=== PATIENT | female | born 1930 | race Caucasian/White ===

== ENCOUNTER 2016-07-31 07:42 | Day surgery (SDC) | payer OTHER ==
[2016-07-31] MEDS ORDERED: DIAZEPAM 5 MG TAB PO ONE (07:49)
[2016-07-31] MEDS ORDERED: FAMOTIDINE 20 MG TAB PO ONE (07:49)
[2016-07-31] MEDS ORDERED: ASPIRIN EC 325 MG TAB PO ONE ×2 (07:49→08:36)
[2016-07-31] MEDS ORDERED: NS 1,000 ML IV ONE (07:49)
[2016-07-31] MEDS ORDERED: diphenhydrAMINE 25 MG CAP PO ONE (07:49)
[2016-07-31] MEDS ORDERED: MIDAZOLAM 2 MG/2 ML VIAL ONE (08:09)
[2016-07-31] MEDS ORDERED: fentaNYL 100 MCG/2 ML INJ ONE (08:09)
[2016-07-31] MEDS ORDERED: LIDOCAINE 1% 30 ML SDV ONE (08:09)
[2016-07-31] MEDS ORDERED: IOPAMIDOL (ISOVUE-300) 100 ML BTL IV ONE (08:10)
--- NOTE | 2016-07-31 08:14 | CPEKG ---
Heart Rate: 56 RR Interval: 1071 P-R Interval: 184 QRSD Interval: 78 QT Interval: 456 QTC Interval: 441 P Casm[place]: 36 QRS [place]: 80 T Wave C[place]: 62 EKG Severity - NORMAL ECG - EKG Impression: SINUS RHYTHM Electronically Signed By: Fernando Hogan 31-Jul-2016 08:17:31
[2016-07-31] MEDS ORDERED: FAMOTIDINE 20 MG TAB ONE (08:36)
[2016-07-31 08:40] LABS: % IMMATURE GRANULYOCYTES 0.2 % (0.0-1.1); ABSOLUTE IMMATURE GRANULOCYTES 0.01 10^3/uL (0.00-0.10); ADD DIFF? NO; ADD MORPH? NO; ADD SCAN? NO; ATYPICAL LYMPHOCYTE FLAG 0 (0-99); FRAGMENT RBC FLAG 0 (0-99); HEMATOCRIT 42.5 % (38.0-47.0); HEMOGLOBIN 14.6 g/dL (12.6-16.3); LEFT SHIFT FLG 0 (0-99); LIPEMIA HEMOLYSIS FLAG 90 (0-99); MEAN CELL HEMOGLOBIN 32.2 pg (27.9-34.1); MEAN CELL HEMOGLOBIN CONCENTR. 34.4 g/dL (32.4-36.7); MEAN CELL VOLUME 93.8 fL (81.5-99.8); MEAN PLATELET VOLUME 11.5 fL (8.7-11.7); PLATELET CLUMPS FLAG 0 (0-99); PLATELET COUNT 164 10^3/uL (150-400); RED BLOOD CELL COUNT 4.53 10^6/uL (4.18-5.33); RED CELL DISTRIBUTION WIDTH 12.4 % (11.5-15.2)
[2016-07-31 08:45] LABS: INR 1.25 (0.83-1.16); PROTIME(PATIENT) 15.7 SEC (12.0-15.0)
[2016-07-31 08:57] LABS: ANION GAP 11 mEq/L (8-16); CALCIUM 9.4 mg/dL (8.5-10.4); CARBON DIOXIDE 25 mEq/l (22-31); CHLORIDE 100 mEq/L (97-110); CHOLESTEROL 142 mg/dL (140-220); CHOLESTEROL/HDL RATIO 3.46 RATIO (1.00-4.44); CREATININE 0.6 mg/dL (0.6-1.0); GLOMERULAR FILTRATION RATE > 60; GLUCOSE 123 mg/dL (70-100); HIGH DENSITY LIPOPROTEIN 41 mg/dL (40-85); LDL/HDL RATIO 1.83 RATIO (1.00-3.22); LOW DENSITY LIPOPROTEIN 75 mg/dL (80-100); NON-HIGH DENSITY LIPOPROTEIN 101 mg/dL (90-129); POTASSIUM 4.1 mEq/L (3.5-5.2); SODIUM 136 mEq/L (134-144); TRIGLYCERIDE 130 mg/dL (35-135); VERY LOW DENSITY LIPOPROTEINS 26 mg/dL (8-25)
[2016-07-31] MEDS ORDERED: BIVALIRUDIN 250 MG/5 ML VIAL IV ONE (09:27)
[2016-07-31] MEDS ORDERED: NITROGLYCERIN 1,500 MCG/15 ML VIAL MISC ONE (09:27)
[2016-07-31] MEDS ORDERED: IOPAMIDOL (ISOVUE 370) 100 ML BTL IV ONE (09:30)
--- NOTE | 2016-07-31 10:25 | CPIP ---
[f rep st] INVASIVE CARDIAC PROCEDURE DATE OF PROCEDURE: 07/31/2016 PROCEDURE: 1. Coronary angiography. 2. Bypass graft angiography. 3. Left ventriculography. INDICATION: 1. Known coronary artery disease, status post bypass grafting surgery. 2. Recent onset of chest pain, concerning for crescendo angina. ACCESS: Patient was prepped and draped in sterile fashion. 1% lidocaine was used to anesthetize th e right inguinal region. A 6-Citizen [place] introducer sheath was placed selectively into the right common femoral artery via modified Seldinger technique. CORONARY ANGIOGRAPHY: A 6-Citizen [place] JL4 was advanced to the left main coronary artery and images obtai lópez. The left main coronary artery bifurcated into an LAD and circumflex coronary arteries. The le ft main coronary artery had a single discrete distal 70% stenosis present. The left anterior descen ding coronary artery was diffusely diseased. In the mid segment there is a single discrete total oc clusion. The distal vessels filled by a patent ARGUELLO to LAD graft. The circumflex coronary artery i s a moderate to large sized vessel. The circumflex coronary artery is nondominant. Circumflex kaleb nary artery is diffusely diseased. In the proximal segment, there is a single discrete 50% to 60% s tenosis present. The third OM artery was occluded. The distal vessel is being filled by a patent s aphenous vein graft to OM artery. A 6-Citizen [place] JR4 was advanced to the right coronary artery and imag es obtained. The right coronary artery is dominant. The right coronary artery was 100% occluded in the proximal segment. BYPASS GRAFT ANGIOGRAPHY: A 6-[place] JR4 was used to engage the saphenous vein graft OM 3 artery. The saphenous vein graft to OM 3 artery is widely patent with no evidence of stenosis. The 6-[place]izen [place] JR4 was then exchanged for a 6-[place] multipurpose catheter. The 6[place] multipurpose catheter wa s used to engage the saphenous vein graft to right coronary artery. The saphenous vein graft to rig ht coronary artery was widely patent. The 6[place] multipurpose catheter was then exchanged for a 6 -[place] JR4, which was used to engage the left subclavian artery. The 6-[place]izen [place] JR4 was then exchang ed for a 6-Citizen [place] ALMITA catheter. The 6-[place]izen [place] ALMITA catheter was used to engage the ARGUELLO to LAD graft. The ARGUELLO to LAD graft was patent with a distal anastomotic lesion, which appeared to be about 40% to 50% in severity. LEFT VENTRICULOGRAPHY: A 6-[place] pigtail catheter was advanced in the left ventricle and images ob tained. Left ventricle was normal size, had hyperdynamic systolic function. Estimated ejection fra ction of 70%. COMPLICATIONS: None. CONCLUSIONS: 1. Three-vessel coronary artery disease. 2. Patent bypass grafts to the LAD, OM 3, and right coronary arteries. 3. Normal left ventricular size and systolic function. 4. Plan is for medical management. /[id number]/MODL
[2016-07-31] MEDS ORDERED: VALSARTAN 160 MG TAB PO ONE (10:30)
[2016-07-31] MEDS ORDERED: CARVEDILOL 6.25 MG TAB PO ONE (10:30)
== END 2016-07-31 15:00 | disposition home or self-care (01) ==
LOC: FCATH 07:42
PROVIDERS: ATTEND Internal Medicine Cardiovascular Disease
PROC: B2111ZZ Fluoroscopy of Multiple Coronary Arteries using Low Osmolar Contrast (ICD-10-PCS; principal; 2016-07-31)
PROC: B2181ZZ Fluoroscopy of Left Internal Mammary Bypass Graft using Low Osmolar Contrast (ICD-10-PCS; principal; 2016-07-31)
PROC: B2151ZZ Fluoroscopy of Left Heart using Low Osmolar Contrast (ICD-10-PCS; principal; 2016-07-31)
PROC: B2131ZZ Fluoroscopy of Multiple Coronary Artery Bypass Grafts using Low Osmolar Contrast (ICD-10-PCS; principal; 2016-07-31)
PROC: 4A023N7 Measurement of Cardiac Sampling and Pressure, Left Heart, Percutaneous Approach (ICD-10-PCS; principal; 2016-07-31)
DX: I25.119 Atherosclerotic heart disease of native coronary artery with unspecified angina pectoris (principal); I25.82 Chronic total occlusion of coronary artery; I48.0 Paroxysmal atrial fibrillation; Z95.1 Presence of aortocoronary bypass graft; Z79.01 Long term (current) use of anticoagulants; E11.9 Type 2 diabetes mellitus without complications; I10 Essential (primary) hypertension; E03.9 Hypothyroidism, unspecified; I35.0 Nonrheumatic aortic (valve) stenosis
CPT/HCPCS: 93005; 93459; C1769; C1760; J0583; J1644; J2250; J3010; Q9967

== ENCOUNTER 2016-10-21 10:50 | Emergency (ER) | payer OTHER ==
[2016-10-21] MEDS ORDERED: PHENYLEPHRINE 0.5% NASAL 15 ML SPRAY ONE (11:11)
[2016-10-21] MEDS ORDERED: SILVER NITRATE APPLICATOR 1 APPL TP ONE ×2 (11:11→11:26)
[2016-10-21 11:37] LABS: INR 2.31 (0.83-1.16); PROTIME(PATIENT) 25.6 SEC (12.0-15.0)
--- NOTE | 2016-10-21 12:13 | EDPHY ---
H & P Stated Complaint: epistaxis this am/now resolved/on coumadin HPI/ROS: Chief complaint: Nose bleed History of present illness: This is an 85-year-old female, on Coumadin, who presents to the emergency department for nose bleed. Patient reports the onset of symptoms this morning. She is bleeding out of her left nostril. He was persistent throughout the morning but has resolved upon arrival here. She denies potential precipitating factors including no trauma no recent cold symptoms. She denies other associated signs or symptoms including other bleeding or abnormal bruising. No systemic symptoms such as lightheadedness, dizziness or fatigue. - Personal History Current Tetanus/Diphtheria Vaccine: Yes - Medical/Surgical History Hx Asthma: No Hx Chronic Respiratory Disease: Yes Hx Diabetes: Yes Hx Cardiac Disease: Yes Hx Renal Disease: No Hx Cirrhosis: No Hx Alcoholism: No Hx HIV/AIDS: No Hx Splenectomy or Spleen Trauma: No Other PMH: HTN, paroxymal A-fib, CABG (1990), Stent (2005), hypothyroid, pre- diabetic, left total shoulder (2009) - Social History Smoking Status: Never smoked - Physical Exam Exam: General Appearance: Alert and no distress. Eyes: Pupils equal and round no injection. ENT: Bleeding coming from the Kiesselbach plexus region of the left naris. Right naris unremarkable. Oropharynx unremarkable. Patient is talking in normal voice, there is no hoarseness, no drooling, no trismus, no stridor. Respiratory: Chest is non tender, lungs are clear to auscultation. Cardiac: regular rate and rhythm Musculoskeletal: Neck is supple and non tender. Extremities have full range of motion and are non tender. Skin: No rashes or lesions. Constitutional: Initial Vital Signs Temperature (C) 36.4 C 10/21/16 10:54 Heart Rate 66 10/21/16 10:54 Respiratory Rate 18 10/21/16 10:54 Blood Pressure 206/74 H 10/21/16 10:54 O2 Sat (%) 91 L 10/21/16 10:54 O2 Delivery Mode Room Air O2 (L/minute) 3 Allergies/Adverse Reactions: epinephrine Allergy (Intermediate, Verified 10/21/16 10:51) Other-Enter Comments Home Medications: Medication Instructions Recorded Acetaminophen [Tylenol Tablet] 500 mg PO Q6 01/15/14 Aspirin [Aspirin 325 mg (OTC)] 325 mg PO DAILY 01/15/14 Atorvastatin Calcium [Lipitor 40 40 mg PO DAILY 01/15/14 mg (RX)] Carvedilol [Coreg (RX)] 12.5 mg PO BIDMEAL 01/15/14 Levothyroxine [Synthroid 50 mcg 50 mcg PO MOTUWETHFR@01/15/14 (RX)] Levothyroxine [Synthroid 50 mcg 100 mcg PO SUSA@01/15/14 (RX)] Nitroglycerin [Nitrostat 0.4 mg 0.4 mg SL PRN PRN 01/15/14 (RX)] Valsartan [Diovan] 160 mg PO BID 01/15/14 Warfarin Sodium [Coumadin 5MG (RX)] 2.5 mg PO DAILY16 01/15/14 Warfarin Sodium [Coumadin 5MG (RX)] 5 mg PO WESA 01/15/14 Ferrous Sulfate 324 mg PO DAILY 07/31/16 Tylenol 500 mg PO PRN PRN 07/31/16 Medical Decision Making Procedures: Procedure: Epistaxis control. After verbal consent was obtained. The anterior epistaxis was identified. The patient was treated with Justo-Synephrine, silver nitrate cautery and Merocel packing. Following the procedure the patient was re-examined and the bleeding was well controlled. The patient tolerated the procedure well. The procedure was performed by myself. ED Course/Re-evaluation: Patient seen under the supervision of my secondary supervising physician Dr. Mauri Harvey. Patient presents to the emergency department for a nose bleed. She is on Coumadin. She is afebrile and vital signs are stable. Anterior epistaxis is identified and controlled. INR is checked and within normal limits. Patient is observed without any bleeding in the emergency room. Vital signs remained stable. Patient will be discharged home. She is referred to Ears Nose and Throat doctor for recheck. Return precautions are given. Patient voiced understanding and agreement with plan. Differential Diagnosis: Included but not limited to anterior epistaxis, posterior epistaxis, coagulopathy - Data Points Laboratory Results: 10/21/16 11:24 PT 25.6 SEC H SEC (12.0-15.0) INR 2.31 H (0.83-1.16) Departure - Departure Disposition: Home, Routine, Self-Care Clinical Impression: Epistaxis Condition: Good Instructions: Nosebleed (ED) Additional Instructions: Follow-up with an Ears Nose and Throat doctor for continued evaluation and care Packing to be removed in 2 days If symptoms worsen or new symptoms develop return to the emergency room for recheck Referrals: Nadeem Hooper MD [Primary Care Provider] - As per Instructions Jose Raul Pinto MD [Medical Doctor] - As per Instructions
[2016-10-21 12:43] VITALS: BP 141/101; PULSE 70; RESP 14; TEMP 98.4; O2SAT 94
== END 2016-10-21 12:42 | disposition home or self-care (01) ==
PROC: 2Y41X5Z Packing of Nasal Region using Packing Material (ICD-10-PCS; principal; 2016-10-21)
DX: R04.0 Epistaxis (principal); I10 Essential (primary) hypertension; Z79.01 Long term (current) use of anticoagulants; Z79.82 Long term (current) use of aspirin; Z95.1 Presence of aortocoronary bypass graft; Z95.5 Presence of coronary angioplasty implant and graft

== ENCOUNTER 2016-10-28 10:36 | Emergency (ER) | payer OTHER ==
[2016-10-28] MEDS ORDERED: OXYMETAZOLINE 30 ML NASAL SPRAY EACHNARE ONE (11:11)
--- NOTE | 2016-10-28 11:11 | EDPHY ---
H & P Time Seen by Provider: 10/28/16 11:03 HPI/ROS: CHIEF COMPLAINT: Nose bleed HISTORY OF PRESENT ILLNESS: Patient was here on October 21 and had cautery and packing and was subsequently seen by Dr. Pinto in the office. She had recurrent nosebleed today mostly at the left nostril. Symptoms moderate. Arrives by EMS. Not dizzy or lightheaded and no syncope. REVIEW OF SYSTEMS: Eye: no change in vision ENT: HPI Cardiac: no chest pain or syncope Pulmonary: no cough or SOB Abdomen: no vomiting, diarrhea, abdominal pain Musculoskeletal: no back pain Skin: no rash Neuro: no headache Constitutional: no fever : no urinary symptoms A comprehensive 10 point review of systems is otherwise negative aside from elements mentioned in the history of present illness. PAST MEDICAL HISTORY: Includes AFib on warfarin, hypertension, coronary artery bypass grafting, thyroid, left total shoulder arthroplasty. Social history: Nonsmoker General Appearance: Alert and conversant, cooperative. Eyes: No scleral icterus. ENT, Mouth: Left nares has packing with active oozing. Respiratory: Normal respiratory effort, breath sounds equal, lungs are clear to auscultation. Cardiovascular: Distant heart sounds. No murmur. Gastrointestinal: Abdomen is soft and non tender. Neurological: Alert and oriented x3. Normally conversant. Face symmetric, normal movement and sensation in all extremities. Skin: Warm and dry, no rashes. Musculoskeletal: No peripheral edema and no joint swelling. Psychiatric: Not agitated. Emergency Department course/MDM: Patient had her nose packed with 1% xylocaine and Afrin. With direct vision I cauterized 1 bleeding area on the septum on the right, and a Merocel nasal pack was placed in the left nostril with Surgicel. 1307: Patient was able to blow her nose and got a large clot out, I was able to suction additional out of the right nostril. No further bleeding at the left nares. Her request is follow-up with [facility] ENT. Smoking Status: Never smoked Constitutional: Initial Vital Signs Temperature (C) 36.7 C 10/28/16 10:39 Heart Rate 78 10/28/16 10:39 Respiratory Rate 20 10/28/16 10:39 Blood Pressure 160/81 H 10/28/16 10:39 O2 Sat (%) 91 L 10/28/16 10:39 O2 Delivery Mode Room Air O2 (L/minute) 2.5 Allergies/Adverse Reactions: epinephrine Allergy (Intermediate, Verified 10/28/16 10:37) Other-Enter Comments Home Medications: Medication Instructions Recorded Acetaminophen [Tylenol Tablet] 500 mg PO Q6 01/15/14 Aspirin [Aspirin 325 mg (OTC)] 325 mg PO DAILY 01/15/14 Atorvastatin Calcium [Lipitor 40 40 mg PO DAILY 01/15/14 mg (RX)] Carvedilol [Coreg (RX)] 12.5 mg PO BIDMEAL 01/15/14 Levothyroxine [Synthroid 50 mcg 50 mcg PO MOTUWETHFR@01/15/14 (RX)] Levothyroxine [Synthroid 50 mcg 100 mcg PO SUSA@01/15/14 (RX)] Nitroglycerin [Nitrostat 0.4 mg 0.4 mg SL PRN PRN 01/15/14 (RX)] Valsartan [Diovan] 160 mg PO BID 01/15/14 Warfarin Sodium [Coumadin 5MG (RX)] 2.5 mg PO DAILY16 01/15/14 Warfarin Sodium [Coumadin 5MG (RX)] 5 mg PO WESA 01/15/14 Ferrous Sulfate 324 mg PO DAILY 07/31/16 Tylenol 500 mg PO PRN PRN 07/31/16 MDM/Departure - MDM Medications Given: Discontinued Medications Oxymetazoline HCl (Afrin Nasal Amery) 2 sprays EACHNARE EDNOW ONE Stop: 10/28/16 11:12 Last Admin: 10/28/16 11:22 Dose: 2 spray - Depart Disposition: Home, Routine, Self-Care Clinical Impression: Acute anterior epistaxis Condition: Good Instructions: Nosebleed (ED) Additional Instructions: Please follow-up with ear nose and throat physician on Sunday as discussed. Referrals: Nadeem Hooper MD [Primary Care Provider] - As per Instructions Wyatt Mcwilliams MD [Medical Doctor] - As per Instructions Lolly Schmidt MD [Medical Doctor] - As per Instructions
[2016-10-28 13:12] VITALS: TEMP 97.2; O2SAT 98
[2016-10-28 13:46] VITALS: BP 134/80; PULSE 63; RESP 15
== END 2016-10-28 13:48 | disposition home or self-care (01) ==
PROC: 2Y41X5Z Packing of Nasal Region using Packing Material (ICD-10-PCS; principal; 2016-10-28)
DX: R04.0 Epistaxis (principal); I10 Essential (primary) hypertension; Z79.82 Long term (current) use of aspirin; Z79.01 Long term (current) use of anticoagulants; Z95.1 Presence of aortocoronary bypass graft

== ENCOUNTER 2018-01-09 21:10 | Inpatient (IN) | payer OTHER ==
[2018-01-09] MEDS ORDERED: IPRATROPIUM/ALBUTEROL 3 ML DEYVIAL IH ONE (22:09)
[2018-01-09] MEDS ORDERED: NS 500 ML IV ONE (22:09)
--- NOTE | 2018-01-09 22:13 | EDPHY ---
H & P Stated Complaint: Chest congestion, cough, sore throat Time Seen by Provider: 01/09/18 21:57 HPI/ROS: HPI The patient presents with cough, chest congestion, sore throat, left-sided chest pain. She initially developed a sore throat about 5 days ago. About 3 days later she developed a cough which was occasionally productive of clear mucus associated with congestion in her chest. Then yesterday she developed left-sided pleuritic chest pain which was worse with coughing and now worse with deep breaths. She uses an oxygen concentrator at home for the last 4 years for presumed interstitial pulmonary fibrosis. She uses 2.5 L. She has not used any breathing treatments at home. She denies any shortness of breath, malaise, myalgias. Her roommate was sick a few weeks ago with chest congestion.. REVIEW OF SYSTEMS Constitutional: No fever, no chills. Eyes: No discharge. ENT: Positive for sore throat. Cardiovascular: No chest pain, no palpitations. Respiratory: See HPI Gastrointestinal: No abdominal pain, no vomiting. Genitourinary: No hematuria. Musculoskeletal: No back pain. Skin: No rashes. Neurological: No headache. PMHx: CAD status post CABG in 1990, cardiac stent placed in 2005, paroxysmal atrial fibrillation managed on Coumadin, interstitial lung disease on 2.5 L of oxygen at home Soc Hx: Housed with roommate, nonsmoker PHYSICAL General Appearance: Alert, no distress Eyes: Pupils equal and round no pallor or injection ENT, Mouth: Mucous membranes moist Respiratory: T breathing comfortably, crackles at lung bases, no retractions Cardiovascular: Regular rate and rhythm Gastrointestinal: Abdomen is soft and non-tender, no masses, bowel sounds normal Neurological: A&O, moves all extremities Skin: Warm and dry, no rashes Musculoskeletal: Neck is supple non tender Extremities: symmetrical, full range of motion Psychiatric: Patient is oriented X 3, there is no agitation Source: Patient Exam Limitations: No limitations - Personal History Current Tetanus Diphtheria and Acellular Pertussis (TDAP): Yes - Medical/Surgical History Hx Asthma: No Hx Chronic Respiratory Disease: Yes Hx Diabetes: Yes Hx Cardiac Disease: Yes Hx Renal Disease: No Hx Cirrhosis: No Hx Alcoholism: No Hx HIV/AIDS: No Hx Splenectomy or Spleen Trauma: No Other PMH: HTN, paroxymal A-fib, CABG (1990), Stent (2005), hypothyroid, pre- diabetic, left total shoulder (2009) - Social History Smoking Status: Never smoked Constitutional: Initial Vital Signs Temperature (C) 36.9 C 01/09/18 21:14 Heart Rate 72 01/09/18 21:14 Respiratory Rate 20 01/09/18 21:14 Blood Pressure 133/57 H 01/09/18 21:14 O2 Sat (%) 86 L 01/09/18 21:14 O2 Delivery Mode Nasal Cannula O2 (L/minute) 4 Allergies/Adverse Reactions: epinephrine Allergy (Intermediate, Verified 01/09/18 21:11) Other-Enter Comments Home Medications: Medication Instructions Recorded Acetaminophen [Tylenol Tablet] 500 mg PO Q6 01/15/14 Aspirin [Aspirin 325 mg (OTC)] 325 mg PO DAILY 01/15/14 Atorvastatin Calcium [Lipitor 40 40 mg PO DAILY 01/15/14 mg (RX)] Carvedilol [Coreg (RX)] 12.5 mg PO BIDMEAL 01/15/14 Levothyroxine [Synthroid 50 mcg 50 mcg PO MOTUWETHFR@01/15/14 (RX)] Levothyroxine [Synthroid 50 mcg 100 mcg PO SUSA@01/15/14 (RX)] Nitroglycerin [Nitrostat 0.4 mg 0.4 mg SL PRN PRN 01/15/14 (RX)] Valsartan [Diovan] 160 mg PO BID 01/15/14 Warfarin Sodium [Coumadin 5MG (RX)] 2.5 mg PO DAILY16 01/15/14 Warfarin Sodium [Coumadin 5MG (RX)] 5 mg PO WESA 01/15/14 Ferrous Sulfate 324 mg PO DAILY 07/31/16 Tylenol 500 mg PO PRN PRN 07/31/16 Medical Decision Making - Diagnostics Imaging Results: Imaging Impressions Chest X-Ray 01/09/18 22:09 Impression: Increasing infiltrates within both lungs, pulmonary edema versus multifocal pneumonia.. 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 Imaging: Discussed imaging studies w/ call person Radiologist Differential Diagnosis: This is an 87-year-old female with past medical history of CAD status post CABG , paroxysmal atrial fibrillation managed on Coumadin, interstitial lung disease using 2.5 L of oxygen at home who presents with sore throat, cough, chest congestion, left-sided chest pain for the last several days. On exam, she is hypoxic on her usual home oxygen, with 5 L of oxygen we are able to keep her saturations in the low 90s. She has crackles in her lung exam , however I am not sure if this is much of a change from her baseline. Differential diagnosis includes pneumonia, viral URI, pulmonary embolism would be unusual given that she is on Coumadin currently, new onset CHF is also a consideration. Plan for trial of DuoNeb. Patient did improve after receiving a DuoNeb. Chest x-ray was abnormal with signs of infiltrate. Labs were checked and did reveal leukocytosis. D-dimer was elevated. Patient underwent CT scan of her chest with contrast demonstrating no PE though multifocal infiltrate. She was treated with ceftriaxone and azithromycin for community-acquired pneumonia. Blood cultures were drawn. She did have a slightly elevated troponin which I attribute to cardiac strain versus true ACS. She will be admitted to the hospitalist service , I have consulted with Dr. Mg who will admit the patient. - Data Points Laboratory Results: Laboratory Results 01/09/18 21:30 01/09/18 21:30 01/10/18 01/09/18 01/09/18 00:30 23:10 21:30 WBC RBC Hgb Hct MCV MCH MCHC RDW Plt Count MPV Neut % (Auto) Lymph % (Auto) [place] % (Auto) Eos % (Auto) Baso % (Auto) Nucleat RBC Rel Count Absolute Neuts (auto) Absolute Lymphs (auto) Absolute Monos (auto) Absolute Eos (auto) Absolute Basos (auto) Absolute Nucleated RBC Immature Gran % Seg Neutrophils % Band Neutrophils % Lymphocytes % Monocytes % Eosinophils % Basophils % Metamyelocytes % Myelocytes % Promyelocytes % Blast Cells % Megakaryocytes % Immature Gran # Absolute Seg Neuts Absolute Band Neuts Absolute Lymphocytes Absolute Monocytes Absolute Eosinophils Absolute Basophils Absolute Metamyelocyte Absolute Myelocytes Absolute Promyelocytes Absolute Plasma Cells Nucleated RBCs Differential Comment RBC/WBC/PLT Morphology Hypersegmented Neuts Atypical Lymphocytes Absolute Blast Cells Plasma Cells % Smudge Cells Toxic Granulation Toxic Vacuolation Dohle Bodies Emiliano Rods Platelet Estimate Clumped Platelets Large Platelets Giant Platelets Bizarre Platelets Polychromasia Hypochromasia Basophilic Stippling Microcytic Cells Spherocytes Pappenheimer Bodies Sickle Cells Target Cells Tear Drop Cells Oval Macrocytes Stomatocytes Savage-Stephens Bodies Echinocytes Elliptocytes Acanthocytes (Spur) Rouleaux Keratocytes Schistocytes PT INR D-Dimer Sodium 131 mEq/L L mEq/L (135-145) Potassium 4.1 mEq/L mEq/L (3.3-5.0) Chloride 94 mEq/L L mEq/L (97-110) Carbon Dioxide 27 mEq/l mEq/l (22-31) Anion Gap 10 mEq/L mEq/L (8-16) BUN 21 mg/dL mg/dL (7-23) Creatinine 0.6 mg/dL mg/dL (0.6-1.0) Estimated GFR > 60 Glucose 171 mg/dL H mg/dL (70-100) Calcium 8.5 mg/dL mg/dL (8.5-10.4) POC Troponin I 0.09 ng/mL H ng/mL (0.00-0.08) NT-Pro-B Natriuret Pep 2200 pg/mL H pg/mL (0-450) Procalcitonin 0.29 ng/mL H ng/mL (0.02-0.10) Specimen Hemolysis 116 Cold Agglutinins 01/09/18 01/09/18 21:30 21:30 WBC 16.53 10^3/uL H 10^3/uL (3.80-9.50) RBC 4.15 10^6/uL L 10^6/uL (4.18-5.33) Hgb 12.8 g/dL g/dL (12.6-16.3) Hct 37.8 % L % (38.0-47.0) MCV 91.1 fL fL (81.5-99.8) MCH 30.8 pg pg (27.9-34.1) MCHC 33.9 g/dL g/dL (32.4-36.7) RDW 13.2 % % (11.5-15.2) Plt Count 206 10^3/uL 10^3/uL (150-400) MPV 11.4 fL fL (8.7-11.7) Neut % (Auto) 82.6 % H % (39.3-74.2) Lymph % (Auto) 4.7 % L % (15.0-45.0) [place] % (Auto) 11.8 % % (4.5-13.0) Eos % (Auto) 0.0 % L % (0.6-7.6) Baso % (Auto) 0.2 % L % (0.3-1.7) Nucleat RBC Rel Count 0.0 % % (0.0-0.2) Absolute Neuts (auto) 13.66 10^3/uL H 10^3/uL (1.70-6.50) Absolute Lymphs (auto) 0.77 10^3/uL L 10^3/uL (1.00-3.00) Absolute Monos (auto) 1.95 10^3/uL H 10^3/uL (0.30-0.80) Absolute Eos (auto) 0.00 10^3/uL L 10^3/uL (0.03-0.40) Absolute Basos (auto) 0.04 10^3/uL 10^3/uL (0.02-0.10) Absolute Nucleated RBC 0.00 10^3/uL 10^3/uL (0-0.01) Immature Gran % 0.7 % % (0.0-1.1) Seg Neutrophils % Cancelled Band Neutrophils % Cancelled Lymphocytes % Cancelled Monocytes % Cancelled Eosinophils % Cancelled Basophils % Cancelled Metamyelocytes % Cancelled Myelocytes % Cancelled Promyelocytes % Cancelled Blast Cells % Cancelled Megakaryocytes % Cancelled Immature Gran # 0.11 10^3/uL H 10^3/uL (0.00-0.10) Absolute Seg Neuts Cancelled Absolute Band Neuts Cancelled Absolute Lymphocytes Cancelled Absolute Monocytes Cancelled Absolute Eosinophils Cancelled Absolute Basophils Cancelled Absolute Metamyelocyte Cancelled Absolute Myelocytes Cancelled Absolute Promyelocytes Cancelled Absolute Plasma Cells Cancelled Nucleated RBCs Cancelled Differential Comment Cancelled RBC/WBC/PLT Morphology Cancelled Hypersegmented Neuts Cancelled Atypical Lymphocytes Cancelled Absolute Blast Cells Cancelled Plasma Cells % Cancelled Smudge Cells Cancelled Toxic Granulation Cancelled Toxic Vacuolation Cancelled Dohle Bodies Cancelled Emiliano Rods Cancelled Platelet Estimate Cancelled Clumped Platelets Cancelled Large Platelets Cancelled Giant Platelets Cancelled Bizarre Platelets Cancelled Polychromasia Cancelled Hypochromasia Cancelled Basophilic Stippling Cancelled Microcytic Cells Cancelled Spherocytes Cancelled Pappenheimer Bodies Cancelled Sickle Cells Cancelled Target Cells Cancelled Tear Drop Cells Cancelled Oval Macrocytes Cancelled Stomatocytes Cancelled Savage-Stephens Bodies Cancelled Echinocytes Cancelled Elliptocytes Cancelled Acanthocytes (Spur) Cancelled Rouleaux Cancelled Keratocytes Cancelled Schistocytes Cancelled PT 35.4 SEC H SEC (12.0-15.0) INR 3.57 H (0.83-1.16) D-Dimer 4.17 ug/mLFEU H ug/mLFEU (0.00-0.50) Sodium Potassium Chloride Carbon Dioxide Anion Gap BUN Creatinine Estimated GFR Glucose Calcium POC Troponin I NT-Pro-B Natriuret Pep Procalcitonin Specimen Hemolysis Cold Agglutinins Cancelled Microbiology Results: MICROBIOLOGY 01/09/18 23:30 Blood Blood Culture - Preliminary Medications Given: Discontinued Medications Acetaminophen (Tylenol) 650 mg PO EDNOW ONE Stop: 01/10/18 00:09 Last Admin: 01/10/18 00:08 Dose: 650 mg Albuterol/Ipratropium (Duoneb) 3 ml IH EDNOW ONE Stop: 01/09/18 22:10 Last Admin: 01/09/18 22:36 Dose: 3 ml Sodium Chloride (Ns) 500 mls @ 1,000 mls/hr IV EDNOW ONE PRN Reason: Protocol Stop: 01/09/18 22:38 Last Admin: 01/09/18 22:36 Dose: 500 mls Azithromycin 500 mg/ Sodium (Chloride) 255 mls @ 255 mls/hr IV EDNOW ONE PRN Reason: Protocol Stop: 01/09/18 23:40 Last Admin: 01/09/18 23:59 Dose: 255 mls Ceftriaxone Sodium/Dextrose (Rocephin 1 Gm (Premix)) 50 mls @ 100 mls/hr IV EDNOW ONE PRN Reason: Protocol Stop: 01/09/18 23:10 Last Admin: 01/09/18 23:40 Dose: 50 mls Point of Care Test Results: Chemistry 01/09/18 23:10 POC Troponin I 0.09 ng/mL H ng/mL (0.00-0.08) Departure - Departure Disposition: Acute Care Hospital Not [facility] Clinical Impression: Multifocal pneumonia, Interstitial lung disease, Hypoxia, Elevated troponin Condition: Fair
[2018-01-09 22:21] LABS: PLATELET COUNT 206 10^3/uL (150-400)
[2018-01-09 22:25] LABS: INR 3.57 (0.83-1.16); PROTIME(PATIENT) 35.4 SEC (12.0-15.0)
[2018-01-09] MEDS ORDERED: AZITHROMYCIN IV 500 MG in NS 250 ML IV ONE (22:41)
[2018-01-09] MEDS ORDERED: IOPAMIDOL (ISOVUE 370) 100 ML BTL IV ONE (22:45)
[2018-01-10] MEDS ORDERED: ACETAMINOPHEN 325 MG TAB ONE (00:07)
[2018-01-10] MEDS ORDERED: ACETAMINOPHEN 325 MG TAB PO ONE (00:08)
[2018-01-10] MEDS ORDERED: ONDANSETRON DISINTEGRATING 4 MG TAB PO PRN (00:34)
[2018-01-10] MEDS ORDERED: ONDANSETRON 4 MG/2 ML VIAL IVP PRN (00:34)
[2018-01-10] MEDS ORDERED: D50W 25 GM/50 ML VIAL IVP PRN (00:42)
--- NOTE | 2018-01-10 01:04 | PDGENHP ---
History and Physical - Chief Complaint Pleuritic pain - History of Present Illness 87 yo F w/ hx of CAD, ILD, DM, AF, CHRF, and HTN presents with SOB. Patient tells me she first noted a sore throat and cough starting about 5 days ago. Her cough progressed and she then became short of breath. Over the last 2 days she was coughing and hurt her L chest wall. She comes in today with cough, SOB, and L pleuritic chest pain. She usually wears 2.5 L/min O2 continuously for her history of ILD. Her cough is productive of only white sputum. Currently she is more comfortable after a nebulizer treatment. She is requiring 5 L/min O2 but breathing comfortable. Case discussed with ED physician Dr. Taylor, records reviewed in EMR. History Information - Allergies/Home Medication List Allergies/Adverse Reactions: epinephrine Allergy (Intermediate, Verified 01/09/18 21:11) Other-Enter Comments Home Medications: Acetaminophen [Tylenol Tablet] 500 mg PO Q6 01/15/14 [Last Taken 01/25/14 21:30] Aspirin [Aspirin 325 mg (OTC)] 325 mg PO DAILY 01/15/14 [Last Taken 07/31/16 06: 00] Atorvastatin Calcium [Lipitor 40 mg (RX)] 40 mg PO DAILY 01/15/14 [Last Taken 06:00] Carvedilol [Coreg (RX)] 12.5 mg PO BIDMEAL 01/15/14 [Last Taken 07/30/16 20:00] Levothyroxine [Synthroid 50 mcg (RX)] 50 mcg PO MOTUWETHFR@01/15/14 [Last Taken 07/31/16 06:00] Levothyroxine [Synthroid 50 mcg (RX)] 100 mcg PO SUSA@01/15/14 [Last Taken 06:00] Nitroglycerin [Nitrostat 0.4 mg (RX)] 0.4 mg SL PRN PRN 01/15/14 [Last Taken Unknown] Valsartan [Diovan] 160 mg PO BID 01/15/14 [Last Taken 07/30/16 20:00] Warfarin Sodium [Coumadin 5MG (RX)] 2.5 mg PO DAILY16 01/15/14 [Last Taken 07/27 17:00] Warfarin Sodium [Coumadin 5MG (RX)] 5 mg PO WESA 01/15/14 [Last Taken 07/26/16 17:00] Ferrous Sulfate 324 mg PO DAILY 07/31/16 [Last Taken 07/30/16 06:00] Tylenol 500 mg PO PRN PRN 07/31/16 [Last Taken Unknown] I have personally reviewed and updated: family history, medical history - Past Medical History atrial fibrillation, coronary artery disease, diabetes type 2, hypertension Additional medical history: ILD - Surgical History Reports: coronary bypass surgery - Family History Positive for: CAD - Social History Smoking Status: Never smoked Review of Systems Review of Systems: ROS: 10pt was reviewed & negative except for what was stated in HPI & below Physical Exam Physical Exam: Temp Pulse Resp BP Pulse Ox 37.0 C 72 20 158/76 H 96 01/09/18 23:07 01/10/18 00:00 01/10/18 00:00 01/10/18 00:00 01/09/18 23:07 Constitutional: no apparent distress, not in pain Eyes: PERRL, EOMI Ears, Nose, Mouth, Throat: moist mucous membranes, no oral mucosal ulcers Cardiovascular: regular rate and rhythym, systolic murmur (@RUSB, 3/6) Respiratory: no respiratory distress, inspiratory crackles, No expiratory wheeze Gastrointestinal: normoactive bowel sounds, soft, non-tender abdomen Skin: warm, normal color Musculoskeletal: full muscle strength, no muscle tenderness Neurologic: AAOx3, CN II-XII Intact Psychiatric: interacting appropriately, not anxious Lab Data & Imaging Review 01/09/18 21:30 01/09/18 21:30 WBC 16.53 10^3/uL (3.80-9.50) H 01/09/18 21:30 RBC 4.15 10^6/uL (4.18-5.33) L 01/09/18 21:30 Hgb 12.8 g/dL (12.6-16.3) 01/09/18 21:30 Hct 37.8 % (38.0-47.0) L 01/09/18 21:30 MCV 91.1 fL (81.5-99.8) 01/09/18 21: MCH 30.8 pg (27.9-34.1) 01/09/18 21:30 MCHC 33.9 g/dL (32.4-36.7) 01/09/18 21:30 RDW 13.2 % (11.5-15.2) 01/09/18 21:30 Plt Count 206 10^3/uL (150-400) 01/09/18 21:30 MPV 11.4 fL (8.7-11.7) 01/09/18 21:30 Neut % (Auto) 82.6 % (39.3-74.2) H 01/09/18 21:30 Lymph % (Auto) 4.7 % (15.0-45.0) L 01/09/18 21:30 [place] % (Auto) 11.8 % (4.5-13.0) 01/09/18 21: Eos % (Auto) 0.0 % (0.6-7.6) L 01/09/18 21:30 Baso % (Auto) 0.2 % (0.3-1.7) L 01/09/18 21:30 Nucleat RBC Rel Count 0.0 % (0.0-0.2) 01/09/18 21:30 Absolute Neuts (auto) 13.66 10^3/uL (1.70-6.50) H 01/09/18 21:30 Absolute Lymphs (auto) 0.77 10^3/uL (1.00-3.00) L 01/09/18 21:30 Absolute Monos (auto) 1.95 10^3/uL (0.30-0.80) H 01/09/18 21:30 Absolute Eos (auto) 0.00 10^3/uL (0.03-0.40) L 01/09/18 21:30 Absolute Basos (auto) 0.04 10^3/uL (0.02-0.10) 01/09/18 21:30 Absolute Nucleated RBC 0.00 10^3/uL (0-0.01) 01/09/18 21: Immature Gran % 0.7 % (0.0-1.1) 01/09/18 21:30 Seg Neutrophils % Cancelled 01/09/18 21:30 Band Neutrophils % Cancelled 01/09/18 21:30 Lymphocytes % Cancelled 01/09/18 21:30 Monocytes % Cancelled 01/09/18 21:30 Eosinophils % Cancelled 01/09/18 21:30 Basophils % Cancelled 01/09/18 21:30 Metamyelocytes % Cancelled 01/09/18 21:30 Myelocytes % Cancelled 01/09/18 21:30 Promyelocytes % Cancelled 01/09/18 21:30 Blast Cells % Cancelled 01/09/18 21:30 Megakaryocytes % Cancelled 01/09/18 21:30 Immature Gran # 0.11 10^3/uL (0.00-0.10) H 01/09/18 21:30 Absolute Seg Neuts Cancelled 01/09/18 21:30 Absolute Band Neuts Cancelled 01/09/18 21:30 Absolute Lymphocytes Cancelled 01/09/18 21:30 Absolute Monocytes Cancelled 01/09/18 21:30 Absolute Eosinophils Cancelled 01/09/18 21:30 Absolute Basophils Cancelled 01/09/18 21:30 Absolute Metamyelocyte Cancelled 01/09/18 21:30 Absolute Myelocytes Cancelled 01/09/18 21:30 Absolute Promyelocytes Cancelled 01/09/18 21:30 Absolute Plasma Cells Cancelled 01/09/18 21:30 Nucleated RBCs Cancelled 01/09/18 21:30 Differential Comment Cancelled 01/09/18 21:30 RBC/WBC/PLT Morphology Cancelled 01/09/18 21:30 Hypersegmented Neuts Cancelled 01/09/18 21:30 Atypical Lymphocytes Cancelled 01/09/18 21:30 Absolute Blast Cells Cancelled 01/09/18 21:30 Plasma Cells % Cancelled 01/09/18 21:30 Smudge Cells Cancelled 01/09/18 21:30 Toxic Granulation Cancelled 01/09/18 21:30 Toxic Vacuolation Cancelled 01/09/18 21:30 Dohle Bodies Cancelled 01/09/18 21:30 Emiliano Rods Cancelled 01/09/18 21:30 Platelet Estimate Cancelled 01/09/18 21:30 Clumped Platelets Cancelled 01/09/18 21:30 Large Platelets Cancelled 01/09/18 21:30 Giant Platelets Cancelled 01/09/18 21:30 Bizarre Platelets Cancelled 01/09/18 21:30 Polychromasia Cancelled 01/09/18 21:30 Hypochromasia Cancelled 01/09/18 21:30 Basophilic Stippling Cancelled 01/09/18 21:30 Microcytic Cells Cancelled 01/09/18 21:30 Spherocytes Cancelled 01/09/18 21:30 Pappenheimer Bodies Cancelled 01/09/18 21:30 Sickle Cells Cancelled 01/09/18 21:30 Target Cells Cancelled 01/09/18 21:30 Tear Drop Cells Cancelled 01/09/18 21:30 Oval Macrocytes Cancelled 01/09/18 21:30 Stomatocytes Cancelled 01/09/18 21:30 Savage-Demarest Bodies Cancelled 01/09/18 21:30 Echinocytes Cancelled 01/09/18 21:30 Elliptocytes Cancelled 01/09/18 21:30 Acanthocytes (Spur) Cancelled 01/09/18 21:30 Rouleaux Cancelled 01/09/18 21:30 Keratocytes Cancelled 01/09/18 21:30 Schistocytes Cancelled 01/09/18 21:30 PT 35.4 SEC (12.0-15.0) H 01/09/18 21:30 INR 3.57 (0.83-1.16) H 01/09/18 21:30 D-Dimer 4.17 ug/mLFEU (0.00-0.50) H 01/09/18 21:30 Sodium 131 mEq/L (135-145) L 01/09/18 21:30 Potassium 4.1 mEq/L (3.3-5.0) 01/09/18 21:30 Chloride 94 mEq/L (97-110) L 01/09/18 21:30 Carbon Dioxide 27 mEq/l (22-31) 01/09/18 21:30 Anion Gap 10 mEq/L (8-16) 01/09/18 21:30 BUN 21 mg/dL (7-23) 01/09/18 21:30 Creatinine 0.6 mg/dL (0.6-1.0) 01/09/18 21:30 Estimated GFR > 60 01/09/18 21:30 Glucose 171 mg/dL (70-100) H 01/09/18 21:30 Calcium 8.5 mg/dL (8.5-10.4) 01/09/18 21:30 POC Troponin I 0.09 ng/mL (0.00-0.08) H 01/09/18 23:10 NT-Pro-B Natriuret Pep 2200 pg/mL (0-450) H 01/09/18 21:30 Specimen Hemolysis 116 01/09/18 21:30 Cold Agglutinins Cancelled 01/09/18 21:30 Imaging Review: Imaging Impressions Chest X-Ray 01/09/18 22:09 Impression: Increasing infiltrates within both lungs, pulmonary edema versus multifocal pneumonia.. CTPE Prelim: multifocal bilat infiltrates no PE mediastinal lymphadenopathy raguzzi 12:30 Assessment & Plan Assessment: 87 yo F w/ hx of CAD, ILD, DM, AF, CHRF, and HTN presents with multifocal pneumonia. Plan: 1. Multifocal pneumonia - CXR notable for multifocal infiltrates, CTA negative for PE. Unclear if viral or bacterial at this point, but reasonable to cover for bacterial initially noting pre-existing lung disease and advanced age. - CTX, Azithro for CAP coverage - Blood cultures, sputum cultures, Strep and legionella urine antigens ordered - Respiratory PCR and procalcitonin pending - Low threshold to initiate steroids, will hold off at this time noting mild hyperglycemia and minimal respiratory distress 2. 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 She uses 2.5 L/min at baseline due to history of ILD. - Wean O2 as able - Incentive spirometer ordered 3. ILD - Possibly IPF per review of records, not on specific treatment for this. Uses 2.5 L/min O2 continuously. 4. CAD - S/p CABG; most recent LHC in 2017 showed patent grafts. - Continue home medications pending reconciliation 5. AF - On warfarin as outpatient for AC. INR 3.5 on admission. - Continue warfarin - Monitor daily INR 6. DM - Not on medication, last A1c <7. - Monitor BG ACHS, D50 IV PRN for hypoglycemia - Will initiate insulin if hyperglycemic Diet - Regular Code - Full Ppx - warfarin Dispo - Admit under inpatient status
[2018-01-10 05:18] LABS: PLATELET COUNT 191 10^3/uL (150-400)
[2018-01-10 05:29] LABS: INR 3.74 (0.83-1.16); PROTIME(PATIENT) 36.7 SEC (12.0-15.0)
[2018-01-10] MEDS: ALBUTEROL 3 ML DEYVIAL IH PRN ×3 (08:34→20:55)
[2018-01-10] MEDS: AZITHROMYCIN 250 MG TAB PO SCH (08:59)
[2018-01-10] MEDS: VALSARTAN 160 MG TAB PO SCH ×2 (08:59→20:45)
[2018-01-10] MEDS: LEVOTHYROXINE 50 MCG TAB PO SCH (09:03)
--- NOTE | 2018-01-10 10:43 | HOSPPROG ---
Hospitalist Progress Note Assessment/Plan: 87 yo F w/ hx of CAD, ILD, DM, AF, CHRF, and HTN presents with multifocal pneumonia. Plan: 1. Multifocal pneumonia - CXR notable for multifocal infiltrates, CTA negative for PE. Unclear if viral or bacterial at this point, but reasonable to cover for bacterial initially noting pre-existing lung disease and advanced age. - CTX, Azithro for CAP coverage - Blood cultures, sputum cultures, Strep and legionella urine antigens ordered - Respiratory PCR and procalcitonin pending - Low threshold to initiate steroids, will hold off at this time noting mild hyperglycemia and minimal respiratory distress 2. 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 She uses 2.5 L/min at baseline due to history of ILD. - Wean O2 as able - Incentive spirometer ordered 3. ILD - Possibly IPF per review of records, not on specific treatment for this. Uses 2.5 L/min O2 continuously. 4. CAD - S/p CABG; most recent LHC in 2017 showed patent grafts. - Continue home medications pending reconciliation 5. AF - On warfarin as outpatient for AC. INR 3.5 on admission. - Continue warfarin - Monitor daily INR 6. DM - Not on medication, last A1c <7. - Monitor BG ACHS, D50 IV PRN for hypoglycemia - Will initiate insulin if hyperglycemic Diet - Regular Code - Full Ppx - warfarin Dispo - Pending clinical course Subjective: Patient reports improved chest pain with breathing Objective: Vital Signs Temp Pulse Resp BP Pulse Ox 36.8 C 68 20 141/81 H 95 01/10/18 07:55 01/10/18 08:41 01/10/18 08:41 01/10/18 07:55 01/10/18 08:41 Microbiology 01/10/18 08:40 - Final Sputum, Expectorated 01/10/18 00:50 Respiratory Panel (PCR) - Final Nasal, Sinus - Swab No Organism Detected Laboratory Results 01/10/18 05:11 01/10/18 05:11 01/09/18 01/10/18 01/11/18 05:59 05:59 05:59 Intake Total 1100 Output Total 800 100 Balance 300 -100 PT 36.7 SEC (12.0-15.0) H 01/10/18 05:11 INR 3.74 (0.83-1.16) H 01/10/18 05:11 - Physical Exam Constitutional: no apparent distress Eyes: PERRL Ears, Nose, Mouth, Throat: moist mucous membranes, hearing normal Cardiovascular: regular rate and rhythym Respiratory: no respiratory distress, reduced air movement, rhonchi Gastrointestinal: normoactive bowel sounds Genitourinary: no bladder fullness Skin: warm Musculoskeletal: no muscle tenderness Neurologic: AAOx3 Psychiatric: interacting appropriately Lymph, Heme, Immunologic: No ecchymoses, No petechiae ICD10 Worksheet Patient Problems: Problems Problem Status Onset Elevated troponin Acute Hypoxia Acute Interstitial lung disease Acute Multifocal pneumonia Acute chronic disease mgmt/transitional care Acute Shoulder arthritis Acute
[2018-01-10] MEDS: CARVEDILOL 6.25 MG TAB PO SCH ×2 (11:02→19:07)
[2018-01-10] MEDS: ASPIRIN 325 MG TAB PO SCH (11:26)
--- NOTE | 2018-01-10 13:22 | ASMTCASEMG ---
Living Arrangements What is your living Answers: Alone arrangement? Who do you live with? Type Of Residence What kind of residence do Answers: House you live in? Discharge Plan Comments Coordination Status Comments Notes: Pt is a 87 y/o female admitted for pleuritic pain. Therapies hae been ordered and awaiting recommendations. Needs are TBD at this time. CM to follow. Plan: TBD Date Signed: 01/10/2018 12:55 PM Electronically Signed By:JOVANNY Mcfadden
[2018-01-10] MEDS ORDERED: CANN-EASE 2 GM TUBE TP PRN (14:22)
[2018-01-10] MEDS: ATORVASTATIN CALCIUM 40 MG TAB PO SCH (14:42)
[2018-01-10] MEDS: FERROUS SULFATE 325 MG TAB PO SCH (14:42)
--- NOTE | 2018-01-10 15:42 | PDMN ---
Medical Necessity Medical necessity: Pt meets IP criteria per MD & MCG M-282; est los >2 mn for eval/tx of multifocal pneumonia w/acute on chronic respiratory failure; requiring further monitoring, IV abx & respiratory supportive care; comorbid advanced age, interstitial lung disease, CAD, CABG, diabetes, AFIB on AC, HTN; per H&P & order 01/10/18
[2018-01-10] MEDS: ACETAMINOPHEN 325 MG TAB PO PRN (20:44)
[2018-01-11] MEDS: ACETAMINOPHEN 325 MG TAB PO PRN ×2 (03:43→20:06)
[2018-01-11] MEDS: LEVOTHYROXINE 50 MCG TAB PO SCH (03:44)
[2018-01-11 04:33] LABS: INR 3.35 (0.83-1.16); PROTIME(PATIENT) 33.7 SEC (12.0-15.0)
[2018-01-11] MEDS: CARVEDILOL 6.25 MG TAB PO SCH ×2 (08:31→17:26)
[2018-01-11] MEDS: VALSARTAN 160 MG TAB PO SCH ×2 (08:31→20:07)
[2018-01-11] MEDS: ASPIRIN 325 MG TAB PO SCH (08:31)
[2018-01-11] MEDS: AZITHROMYCIN 250 MG TAB PO SCH (08:32)
[2018-01-11] MEDS: ALBUTEROL 3 ML DEYVIAL IH PRN ×2 (09:50→21:15)
--- NOTE | 2018-01-11 10:24 | HOSPPROG ---
Hospitalist Progress Note Assessment/Plan: 87 yo F w/ hx of CAD, ILD, DM, AF, CHRF, and HTN presents with multifocal pneumonia. Plan: 1. Multifocal pneumonia - CXR notable for multifocal infiltrates, CTA negative for PE. Unclear if viral or bacterial at this point, but reasonable to cover for bacterial initially noting pre-existing lung disease and advanced age. - CTX, Azithro for CAP coverage, will plan to transition to PO abx tomorrow - Blood cultures, sputum cultures, Strep and legionella urine antigens ordered - Respiratory PCR and procalcitonin pending - Low threshold to initiate steroids, will hold off at this time noting mild hyperglycemia and minimal respiratory distress 2. 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 She uses 2.5 L/min at baseline due to history of ILD. - Wean O2 as able - Incentive spirometer ordered 3. ILD - Possibly IPF per review of records, not on specific treatment for this. Uses 2.5 L/min O2 continuously. 4. CAD - S/p CABG; most recent LHC in 2017 showed patent grafts. - Continue home medications pending reconciliation 5. AF - On warfarin as outpatient for AC. INR 3.5 on admission. - Continue warfarin - Monitor daily INR 6. DM - Not on medication, last A1c <7. - Monitor BG ACHS, D50 IV PRN for hypoglycemia - Will initiate insulin if hyperglycemic Diet - Regular Code - Full Ppx - warfarin Dispo - Plan for discharge tomorrow if remains stable overnight to complete course of PO abx Subjective: Patient reports breathing continues to improve this morning, she does report cough though Objective: Vital Signs Temp Pulse Resp BP Pulse Ox 36.8 C 65 11 L 131/68 H 93 01/11/18 08:00 01/11/18 09:50 01/11/18 09:50 01/11/18 08:00 01/11/18 09:50 Microbiology 01/10/18 08:40 - Final Sputum, Expectorated 01/10/18 00:50 Respiratory Panel (PCR) - Final Nasal, Sinus - Swab No Organism Detected Laboratory Results 01/11/18 04:14 01/10/18 05:11 01/10/18 01/11/18 01/12/18 05:59 05:59 05:59 Intake Total 1100 1690 Output Total 800 550 Balance 300 1140 PT 33.7 SEC (12.0-15.0) H 01/11/18 04:14 INR 3.35 (0.83-1.16) H 01/11/18 04:14 - Physical Exam Constitutional: no apparent distress Eyes: PERRL Ears, Nose, Mouth, Throat: moist mucous membranes Cardiovascular: regular rate and rhythym Respiratory: no respiratory distress, reduced air movement Gastrointestinal: normoactive bowel sounds Genitourinary: No smith in urethra Skin: warm Musculoskeletal: no muscle tenderness Neurologic: AAOx3 Psychiatric: interacting appropriately ICD10 Worksheet Patient Problems: Problems Problem Status Onset Elevated troponin Acute Hypoxia Acute Interstitial lung disease Acute Multifocal pneumonia Acute chronic disease mgmt/transitional care Acute Shoulder arthritis Acute
[2018-01-11] MEDS: guaiFENesin 200 MG/10 ML UDL PO PRN ×2 (11:18→18:43)
[2018-01-11] MEDS ORDERED: AZITHROMYCIN 250 MG TAB PO ONE (12:00)
--- NOTE | 2018-01-11 12:52 | ASMTCMCOM ---
CM Note CM Note Notes: 01/11/2018 Case Management note Met w/pt to discuss d/c needs. Pt is declining need for home care. Pt lives on property with son Gagandeep [phone]. Her room mate is a private caregiver for others and at times will assist pt with needs. Discussed benefits of palliative care. Pt is considering outpatient palliative support. Case Management d/c poc: home with family support. Case Management to follow. Date Signed: 01/11/2018 12:51 PM Electronically Signed By:Elly Good RN
[2018-01-11] MEDS: ATORVASTATIN CALCIUM 40 MG TAB PO SCH (13:59)
[2018-01-11] MEDS: FERROUS SULFATE 325 MG TAB PO SCH (13:59)
[2018-01-12 05:04] LABS: INR 2.61 (0.83-1.16); PROTIME(PATIENT) 27.9 SEC (12.0-15.0)
[2018-01-12] MEDS ORDERED: LEVOTHYROXINE 50 MCG TAB PO SCH (06:00)
[2018-01-12] MEDS: ACETAMINOPHEN 325 MG TAB PO PRN (07:42)
[2018-01-12 07:54] VITALS: BP 151/69
[2018-01-12] MEDS ORDERED: ASPIRIN EC 81 MG TAB PO SCH (09:00)
[2018-01-12] MEDS ORDERED: AZITHROMYCIN 250 MG TAB PO SCH (09:00)
[2018-01-12] MEDS: CARVEDILOL 6.25 MG TAB PO SCH (09:20)
[2018-01-12] MEDS: VALSARTAN 160 MG TAB PO SCH (09:20)
--- NOTE | 2018-01-12 11:02 | ASMTLACE ---
LACE Length of stay for Answers: 2 days current admission Acuity / Level of Answers: Yes Care: Did the patient have an inpatient admission? Comorbidities - select Answers: Congestive heart failure all that apply Coronary Artery Disease Diabetes (uncontrolled or controlled) Opioid dependence / Chronic pain Other Notes: AFib; HTN; Hypothyroid # of Emergency department Answers: 1-2 visits in the last 6 months Score: 16 Date Signed: 01/12/2018 11:01 AM Electronically Signed By:Elly Good RN
--- NOTE | 2018-01-12 11:33 | ASMTDCNOTE ---
Case Management Discharge Discharge Order Complete? Answers: Yes Patient to Obtain Answers: via Family Medications Transportation Arranged Answers: Family/Friends Faxed Final Orders Answers: Yes Notes: to [facility] Family Notified Answers: Yes Notes: by patient Discharge Comments Notes: 01/12/2018 Case Management Note Pt to discharge home with son transporting. Faxed referral to [facility] for outpatient follow up. Pt to resume outpatient PT in [place]. No further case management d/c needs identified. Date Signed: 01/12/2018 11:32 AM Electronically Signed By:Elly Good RN
--- NOTE | 2018-01-12 11:33 | ASDISCHSUM ---
Discharge Information Plan Status:Outpatient Palliative Care Medically Cleared to Leave:01/12/2018 Discharge Date:01/12/2018 CM D/C Disposition:Home, Routine, Self-Care ADT D/C Disposition:Home, Routine, Self-Care Projected Discharge Date:01/12/2018 11:00 AM Transportation at D/C:Family Discharge Delay Reason: Follow-Up Date:01/12/2018 11:00 AM Discharge Slot: Final Diagnosis: Placement Information Referral Type:Palliative Care Referral ID:[id number] Provider Name:[facility] Address 1[address] Phone Number: Address 2: Fax Number: City:[place] Selection Factors: State:[place] Patient Contact Information Contact Name:EARLLILLY Relationship:Son Address: City:[facility] Phone: State/[facility] Code:[place] Email: Financial Information Financial Class:Medicare Primary Plan Desc:MEDICARE INPATIENT Primary Plan Number:[id number] Secondary Plan Desc:[employer]UL[place] JOSE PPO Secondary Plan Number:[id number] Assessment Information LACE LACE Length of stay for Answers: 2 days current admission Acuity / Level of Answers: Yes Care: Did the patient have an inpatient admission? Comorbidities - select Answers: Congestive heart failure all that apply Coronary Artery Disease Diabetes (uncontrolled or controlled) Opioid dependence / Chronic pain Other Notes: AFib; HTN; Hypothyroid # of Emergency department Answers: 1-2 visits in the last 6 months Score: 16 Date Signed: 01/12/2018 11:01 AM Electronically Signed By:Elly Good RN [facility] Initial CM Assessment Living Arrangements What is your living Answers: Alone arrangement? Who do you live with? Type Of Residence What kind of residence do Answers: House you live in? Discharge Plan Comments Coordination Status Comments Notes: Pt is a 87 y/o female admitted for pleuritic pain. Therapies hae been ordered and awaiting recommendations. Needs are TBD at this time. CM to follow. Plan: TBD Date Signed: 01/10/2018 12:55 PM Electronically Signed By:JOVANNY Mcfadden [facility] CM Progress Note CM Note CM Note Notes: 01/11/2018 Case Management note Met w/pt to discuss d/c needs. Pt is declining need for home care. Pt [place] property with son Gagandeep [phone]. Her room mate is a private caregiver for others and at times will assist pt with needs. Discussed benefits of palliative care. Pt is considering outpatient palliative support. Case Management d/c poc: home with family support. Case Management to follow. Date Signed: 01/11/2018 12:51 PM Electronically Signed By:Elly Good RN Case Management Discharge Plan Note Case Management Discharge Discharge Order Complete? Answers: Yes Patient to Obtain Answers: via Family Medications Transportation Arranged Answers: Family/Friends Faxed Final Orders Answers: Yes Notes: to [facility] Family Notified Answers: Yes Notes: by patient Discharge Comments Notes: 01/12/2018 Case Management Note Pt to discharge home with son dorothy. Faxed referral to [facility] for outpatient follow up. Pt to resume outpatient PT in [place]. No further case management d/c needs identified. Date Signed: 01/12/2018 11:32 AM Electronically Signed By:Elly Good RN Intervention Information Intervention Type:*IM-Signed Date of Service:01/11/2018 02:46 PM Patient Type:Inpatient Staff Member:Vanessa Erazo Hours: Discipline: Severity: Comment:
--- NOTE | 2018-01-12 12:25 | GDS ---
DISCHARGE DIAGNOSES: 1. Community-acquired pneumonia. 2. Acute on chronic hypoxemic respiratory failure. 3. Coronary artery disease, status post coronary artery bypass graft. 4. Interstitial lung disease. 5. Diabetes. 6. Atrial fibrillation. 7. Hypertension. HISTORY OF PRESENT ILLNESS: An 87-year-old female with coronary disease, ILD, chronic hypoxemic resp iratory failure, presenting with shortness of breath. She noted a sore throat and cough starting 5 d ays prior to admission. The cough became so bad that she became short of breath. She had some left pleuritic chest pain. Normally wears 2.5 L of oxygen, but had to increase this at home. HOSPITAL COURSE BY PROBLEM: 1. Multifactorial community-acquired pneumonia: CTA was negative for PE. Chest x-ray consistent wi th pneumonia. Negative respiratory panel. She was treated with IV antibiotics here. Will transitio n to oral for a total of 5 days. 2. Acute on chronic hypoxemic respiratory failure: On admission, was requiring 5 L, but now on 3, w hich is near her baseline. 3. ILD, stable on home oxygen. 4. Coronary artery disease, status post CABG. Most recent heart catheterization in 2017 showed jacobs nt grafts. Continue aspirin, statin, and beta willie. 5. Hypothyroidism, levothyroxine. 6. Hypertension, Diovan. 7. Atrial fibrillation. INR at goal. 8. Diabetes. Last A1c was less than 7. She is not on any medications. 9. Discharge home with outpatient PT. PHYSICAL EXAMINATION: VITAL SIGNS: Today, temperature 36.9, blood pressure 151/69, heart rate in th e 60s, respiratory rate 14, 97% on 3 L. GENERAL: She is well appearing, sitting in bed, no acute di stress. HEENT: PERRLA. Moist mucous membranes. CV: Regular rate and rhythm. LUNGS: A few rhonch i, but moving good air. ABDOMEN: Soft, nontender, nondistended. Positive bowel sounds. : No Fo rhea. MUSCULOSKELETAL: 5/5 upper/lower extremity strength. NEURO: 2 through 12 intact. PSYCH: Al ert and oriented x3. Time spent on discharge: Greater 30 minutes at bedside evaluating patient, reviewing notes and couns elimichelet on discharge plan. /[id number]/MODL
== END 2018-01-12 12:39 | disposition home or self-care (01) | DRG 193 ==
LOC: F2W 01-10 01:38
PROVIDERS: ADMIT Student in an Organized Health Care Education/Training Program; ATTEND Student in an Organized Health Care Education/Training Program
DX: J18.8 Other pneumonia, unspecified organism (principal); J96.21 Acute and chronic respiratory failure with hypoxia; E86.9 Volume depletion, unspecified; I25.10 Atherosclerotic heart disease of native coronary artery without angina pectoris; E11.65 Type 2 diabetes mellitus with hyperglycemia; I48.91 Unspecified atrial fibrillation; I10 Essential (primary) hypertension; E03.9 Hypothyroidism, unspecified; Z95.1 Presence of aortocoronary bypass graft; Z95.5 Presence of coronary angioplasty implant and graft
CPT/HCPCS: 84484-PO; 87449-90; 96365; 97116-GP; 97161-GP; 97165-GO; G8978-GP-CI; G8979-GP-CI; G8980-GP-CI; G8987-GO-CJ; G8988-GO-CI; J0456; J0696; J7613; Q9967

== ENCOUNTER → 2018-05-27 | Outpatient (CLI) | payer OTHER ==
--- NOTE | 2018-05-27 17:39 | ECHO ---
[email or web address] [address] [address] Main: [phone] Fax: Transthoracic Echocardiogram Name: RISHABH LUTZ MR#: [id number] Study Date: 05/27/2018 Study Time: 01:44 PM Date of : 1930 Age: 87 year(s) Height: 160 cm (63 in.) Weight: 72.58 kg (160 lb.) BSA: 1.76 m2 Gender: Female Examination: Echo Indication: irregular heart rate; h/o CABG Image Quality: Adequate Contrast: Requested by: Nadeem Hooper BP: / Heart Rate: Rhythm: Indication: irregular heart rate; h/o CABG Procedure Staff Scooper: Ivette Dickson [facility] Reading Physician: Bradly Calderon MD Requesting Provider: Conclusions: Normal size left ventricle. Mild concentric LV hypertrophy. Normal global systolic LV function. EF is 54 %. Grade II diastolic dysfunction. Normal RV function. The left atrium is moderately dilated. Measurements: Chambers Valvular Assessment AV/MV Valvular Assessment TV/PV Normal Normal Normal Name Value Range Name Value Range Name Value Range Ao Talisha (MM): 3.1 cm (2.2 cm-3.7 AV Vmax: 2.17 m/s (1 m/s-1.7 TR Vmax: 3.32 mm/s ( - ) cm) m/s) TR PGmax: 44 mmHg ( - ) IVSd (2D): 1.2 cm (0.6 cm-1.1 AV maxP mmHg ( - ) syst. PAP: 49 mmHg ( - ) cm) AV meanP mmHg ( - ) PV Vmax: 0.94 m/s (0.6 m/s-0.9 LVDd (2D): 4.5 cm (3.9 cm-5.3 HEIDE (VTI): 1.3 cm ( - ) m/s) cm) MV E Vmax: 1.18 m/s ( - ) PV PGmax: 4 mmHg ( - ) LVDs (2D): 2.7 cm (2.1 cm-4 MV A Vmax: 1.28 m/s ( - ) cm) MV E/A: 0.92 ( - ) LVPWd (2D): 1.2 cm ( - ) LVOTd 2.0 cm 2.0 cm mm LVEF (BP): 54 % (>=55 %) RVDd(2D): 2.8 cm (1.9 cm-3.8 cmmm) Continued Measurements: Chambers Valvular Assessment AV/MV Valvular Assessment TV/PV Name Value Name Value Name Value Patient: RISHABH LUTZ Study Date: 05/27/2018 Page 1 of 2 01:44 PM LADs: 4.2 cm MV DecTime: 301 m/s CVP (est.): 5 mmHg LADs Lon.9 cm MV E' Septal: 0.04 m/s LA Area: 23.2 cm2 MV E/E' Septal: 30.00 LA Volume: 79 ml MV E/E' Lateral: 27.20 LA Volume Index: 44.9 ml/m2 RA Area: 16.3 cm2 Additional Vessels Name Value Ao Ascendin.4 cm Findings: Left Ventricle: Normal size left ventricle. Mild concentric LV hypertrophy. Normal global systolic LV function. EF is 54 %. No regional wall motion abnormality. Grade II diastolic dysfunction. Right Ventricle: Normal size right ventricle. Normal RV function. Left Atrium: The left atrium is moderately dilated. Right Atrium: The right atrium is normal in size. Mitral Valve: Moderate mitral annular calcification. There is moderate thickening of the mitral valve leaflets. Trivial mitral valve regurgitation. No mitral stenosis is present. Aortic Valve: The aortic valve is tri-leaflet. Moderate aortic cusp calcification is present. There is no aortic valve regurgitation. Mean aortic valve gradient 12. Trivial calcific aortic valve stenosis. Tricuspid Valve: The tricuspid valve appears normal. Mild tricuspid regurgitation is present. Right ventricular systolic pressure measures 49mmHg. The pulmonary artery pressure is moderately increased. Pulmonic Valve: Pulmonary valve not visualized. Trivial pulmonic valve regurgitation. Aorta: Normal size aortic root measuring 3.1 cm. Normal size ascending aorta measuring 3.4 cm. IVC: Normal size and course of the IVC. Pericardium: No pericardial effusion. (No Signature Object) Patient: RISHABH LUTZ Study Date: 05/27/2018 Page 2 of 2 01:44 PM [id number]
== END ==
LOC: FCP 13:07
PROVIDERS: ATTEND Internal Medicine
DX: I35.0 Nonrheumatic aortic (valve) stenosis (principal)

== ENCOUNTER 2018-06-17 12:08 | Emergency (ER) | payer OTHER ==
[2018-06-17 12:18] VITALS: BP 144/100
--- NOTE | 2018-06-17 13:00 | EDPHY ---
H & P Stated Complaint: epistaxis Time Seen by Provider: 06/17/18 12:59 HPI/ROS: CHIEF COMPLAINT: Epistaxis HISTORY OF PRESENT ILLNESS: The patient has paroxysmal atrial fibrillation presents the ED with epistaxis that began earlier today. She is anticoagulated with Coumadin. She denies any history of fall or trauma. The patient has no complaints of pain. She denies any lightheadedness. She has had a prior history of epistaxis. REVIEW OF SYSTEMS: A comprehensive 10 point review of systems is otherwise negative aside from elements mentioned in the history of present illness. Source: Patient Exam Limitations: No limitations - Personal History Current Tetanus Diphtheria and Acellular Pertussis (TDAP): Unsure - Medical/Surgical History Hx Asthma: No Hx Chronic Respiratory Disease: Yes Hx Diabetes: Yes Hx Cardiac Disease: Yes Hx Renal Disease: No Hx Cirrhosis: No Hx Alcoholism: No Hx HIV/AIDS: No Hx Splenectomy or Spleen Trauma: No Other PMH: HTN, paroxymal A-fib, CABG (1990), Stent (2005), hypothyroid, pre- diabetic, left total shoulder (2009) - Social History Smoking Status: Never smoked - Physical Exam Exam: General Appearance: Alert, no distress Eyes: Pupils equal and round no pallor or injection ENT, Mouth: Bleeding from the left anterior nasal septum Respiratory: There are no retractions, lungs are clear to auscultation Cardiovascular: Regular rate and rhythm Gastrointestinal: Abdomen is soft and nontender, no masses, bowel sounds normal Neurological: 5/5 strength all 4 extremities Skin: Warm and dry, no rashes Musculoskeletal: Neck is supple nontender Extremities: symmetrical, full range of motion Constitutional: Initial Vital Signs Temperature (C) 36.4 C 06/17/18 12:14 Heart Rate 76 06/17/18 12:14 Respiratory Rate 18 06/17/18 12:14 Blood Pressure 144/100 H 06/17/18 12:14 O2 Sat (%) 86 L 06/17/18 12:14 O2 Delivery Mode Nasal Cannula O2 (L/minute) 3.5 Allergies/Adverse Reactions: epinephrine Allergy (Intermediate, Verified 06/17/18 12:12) Other-Enter Comments lidocaine Allergy (Verified 06/17/18 12:13) Home Medications: Medication Instructions Recorded Atorvastatin Calcium [Lipitor 40 40 mg PO DAILY14 01/15/14 mg (*)] Carvedilol [Coreg (*)] 12.5 mg PO BIDMEAL 01/15/14 Levothyroxine [Synthroid 50 mcg 50 mcg PO MOTUWETHFR@01/15/14 (*)] Levothyroxine [Synthroid 50 mcg 100 mcg PO SUSA@01/15/14 (*)] Nitroglycerin [Nitrostat 0.4 mg 0.4 mg SL PRN PRN 01/15/14 (*)] Valsartan [Diovan] 160 mg PO BID 01/15/14 Warfarin Sodium [Coumadin 5MG (*)] 2.5 mg PO SUMOTUTHFR@01/15/14 Warfarin Sodium [Coumadin 5MG (*)] 5 mg PO WESA@01/15/14 Acetaminophen [Tylenol ES 500 mg 500 mg PO Q6HRS PRN 07/31/16 (*)] Ferrous Sulfate [Ferrous Sulf 325 325 mg PO DAILY14 07/31/16 MG (*)] Aspirin EC [Aspirin EC 325 mg (*)] 325 mg PO DAILY 05/24/18 Medical Decision Making Procedures: Procedure: Epistaxis control. Indication: nosebleed not controlled by direct pressure. Risks, benefits, alternatives discussed with patient and consent obtained. The left nares was anesthetized with topical cocaine. The anterior epistaxis was identified. The patient was treated with vaso constriction and silver nitrate cautery. Following the procedure the patient was re-examined and the bleeding was well controlled. The patient tolerated the procedure well. The procedure was performed by myself. ED Course/Re-evaluation: Patient presents to the ED with a nose bleed. She was cauterized by myself without complication. She was observed in the emergency department without recurrent bleeding. She is discharged home with customary aftercare instructions and return precautions. Differential Diagnosis: Differential diagnosis considered includes anterior epistaxis, posterior epistaxis, critical anemia Departure - Departure Disposition: Home, Routine, Self-Care Clinical Impression: Acute anterior epistaxis Condition: Good Instructions: Nosebleed (ED) Additional Instructions: 1. Return to the emergency department for recurrent nose bleed not relieved with direct pressure for 10 min. 2. You have been given the number of our on-call Ear Nose Throat physician if you continue to have mild problems with intermittent nose bleeding. Referrals: Nadeem Hooper MD [Primary Care Provider] - As per Instructions Cecilia Mckeon MD [Medical Doctor] - As per Instructions
[2018-06-17] MEDS ORDERED: SILVER NITRATE APPLICATOR 1 APPL TP ONE (13:02)
[2018-06-17] MEDS ORDERED: OXYMETAZOLINE 30 ML NASAL SPRAY EACHNARE ONE (13:02)
[2018-06-17] MEDS ORDERED: COCAINE HCL 4% 4 ML BTL TP ONE (13:03)
== END 2018-06-17 14:27 | disposition home or self-care (01) ==
PROC: 3E09XTZ Introduction of Destructive Agent into Nose, External Approach (ICD-10-PCS; principal; 2018-06-17)
DX: R04.0 Epistaxis (principal); I48.0 Paroxysmal atrial fibrillation; I10 Essential (primary) hypertension; E03.9 Hypothyroidism, unspecified; Z79.01 Long term (current) use of anticoagulants

== ENCOUNTER → 2018-09-02 | Outpatient (CLI) | payer OTHER | LOC: FIMAGING 10:57 | PROVIDERS: ATTEND Internal Medicine | DX: I70.8 Atherosclerosis of other arteries (principal) ==